=== PATIENT | female | born 1990 ===

== ENCOUNTER 2018-08-04 19:35 | Emergency (ER) | payer OTHER ==
[~2018-08-04] VITALS: Ht 160 cm; Wt 58.1 kg
[2018-08-04] MEDS ORDERED: SINGULAIR10 MG (19:40)
[2018-08-04] MEDS ORDERED: ALLEGRA ALLERG180 MG (19:40)
== END 2018-08-04 22:57 | disposition home or self-care (01) ==
LOC: ER 19:35
DX: R10.2 Pelvic and perineal pain (principal)

== ENCOUNTER 2024-11-10 08:00 | Inpatient (IN) | payer OTHER ==
[2024-11-03 13:38] VITALS: BP 120/80
[2024-11-03 14:14] LABS: RH POSITIVE
[~2024-11-10] VITALS: Ht 91.4 cm; Wt 68.0 kg
[~2024-11-10 08:00] MED LIST: ALLEGRA ALLERG180 MG; NEURONTIN300 MG; OMEPRAZOLE40 MG PO; PEPCID AC20 MG; SINGULAIR10 MG
[2024-11-10] MEDS ORDERED: CEFAZOLIN SODIUM 1,000 MG VIAL ONE (10:22)
[2024-11-10] MEDS ORDERED: VISTASEAL DUAL APPICATOR 1 EACH APPL TOP ONE (20:34)
[2024-11-10] MEDS ORDERED: THROMBIN,HU/FIBRINOGEN/CALCIUM 10 ML SYRINGE TOP ONE (20:34)
[2024-11-10] MEDS ORDERED: RINGERS SOLUTION,LACTATED 1,000 ML IV SCH (21:27)
[2024-11-10] MEDS ORDERED: ONDANSETRON HCL 2 MG/ML VIAL IV SCH (21:27)
[2024-11-10] MEDS ORDERED: CELECOXIB 200 MG CAPSULE PO STA (21:28)
[2024-11-10] MEDS ORDERED: GABAPENTIN 100 MG CAPSULE PO SCH (21:28)
[2024-11-10] MEDS ORDERED: ACETAMINOPHEN 325 MG TABLET PO SCH (21:28)
[2024-11-10] MEDS ORDERED: SUGAMMADEX SODIUM 200 MG/2 ML VIAL IV ONE (21:31)
[2024-11-11 00:06] LABS: BASO % 0.5 % (0.1-1.2); EOS # 0.16 (0.04-0.54); EOS % 1.3 % (0.7-7.0); LYMPH # 2.40 (1.18-3.74); LYMPH % 19.3 % (19.3-53.1); MEAN PLATELET VOLUME 9.60 fl (9.4-12.4); MONO # 0.76 (0.24-0.82); MONO % 6.1 % (4.7-12.5); NEUT # 8.98 (1.56-6.13); NEUT % 72.4 % (34.0-71.1); RED CELL DISTRIBUTION WIDTH 11.8 % (11.6-14.4)
[2024-11-11] MEDS ORDERED: CELECOXIB 200 MG CAPSULE PO ONE (00:09)
[2024-11-11 00:29] LABS: BUN CREA RATIO 12.0 (7.0-25.0); CREATININE SERUM 0.69 mg/dL (0.55-1.02); GFR 97.98; GLUCOSE FASTING 131.0 mg/dL (65-100); OSMOLALITY SERUM 276.0 MOSM/KG (275-295)
[2024-11-11] MEDS ORDERED: GABAPENTIN 100 MG CAPSULE PO ONE (01:21)
[2024-11-11] MEDS ORDERED: ACETAMINOPHEN 325 MG TABLET PO ONE (01:22)
[2024-11-11 01:52] VITALS: BP 120/80
[2024-11-11] MEDS ORDERED: KETOROLAC TROMETHAMINE 30 MG VIAL IV ONE (05:30)
[2024-11-11 06:48] LABS: BASO % 0.3 % (0.1-1.2); EOS # 0.01 (0.04-0.54); EOS % 0.1 % (0.7-7.0); LYMPH # 1.37 (1.18-3.74); LYMPH % 15.2 % (19.3-53.1); MEAN PLATELET VOLUME 9.70 fl (9.4-12.4); MONO # 0.44 (0.24-0.82); MONO % 4.9 % (4.7-12.5); NEUT # 7.16 (1.56-6.13); NEUT % 79.3 % (34.0-71.1); RED CELL DISTRIBUTION WIDTH 11.4 % (11.6-14.4)
[2024-11-11] MEDS ORDERED: SODIUM CHLORIDE 0.9% IV SCH (08:19)
[2024-11-11] MEDS ORDERED: KETOROLAC TROMETHAMINE IV SCH (08:19)
[2024-11-11 08:45] VITALS: BP 119/81; O2SAT 99
[2024-11-11 19:16] VITALS: BP 124/80
[2024-11-12] VITALS: BP 96/63
[2024-11-12 09:39] VITALS: BP 111/74
== END 2024-11-12 13:30 | disposition home or self-care (01) | DRG 743 ==
LOC: CIR.AMB 08:00 → OB/GYN 22:01
PROVIDERS: Obstetrics & Gynecology Gynecology; Urology; ADMIT Student in an Organized Health Care Education/Training Program; ATTEND Student in an Organized Health Care Education/Training Program
PROC: 0T788DZ Dilation of Bilateral Ureters with Intraluminal Device, Via Natural or Artificial Opening Endoscopic (ICD-10-PCS; 2024-11-10)
PROC: 4A1BXSH Monitoring of Gastrointestinal Vascular Perfusion using Indocyanine Green Dye, External Approach (ICD-10-PCS; 2024-11-10)
PROC: 0UT94ZZ Resection of Uterus, Percutaneous Endoscopic Approach (ICD-10-PCS; principal; 2024-11-10 07:00)
PROC: 0UT74ZZ Resection of Bilateral Fallopian Tubes, Percutaneous Endoscopic Approach (ICD-10-PCS; 2024-11-10 07:00)
DX: N72 Inflammatory disease of cervix uteri (principal); N94.5 Secondary dysmenorrhea; N80.03 Adenomyosis of the uterus; R10.2 Pelvic and perineal pain